=== PATIENT | female | born 1965 | race Caucasian/White ===

== ENCOUNTER 2017-06-27 19:51 | Emergency (ER) | payer BC ==
--- OUTSIDE RECORDS SUMMARY | 2017-06-27 20:22 | XMS REPORT ---
:1965 External Reference #:[id number] Author Organization [facility], [facility]–[address] Address [address] [place] [address] Phone [phone] Care Team Providers Name Role Phone Caitlyn Cedeno Primary Care Physician Unavailable Payers Type Date Identification Numbers Payment Provider Subscriber Commercial Policy Number: [id number] [place] Par Phoebe Roberts PayID: [id number] [employer] [place] [address] Problems Description No Information Family History Date Family Member(s) Problem(s) Comments Father due to Liver Cancer () Father due to Lung Cancer () Mother due to [place] () Children 2 First Daughter A&W Second Daughter A&W Siblings 3 Siblings Oldest child of 4 First Brother A&W Second Brother A&W First Sister A&W Social History Type Date Description Comments Education Highest level completed, Associates Degree Marital Status Lives With Spouse Sleep Typically sleeps 7 hours a night Pets None Occupation Floor Installer at [employer] Cigarette Use Former Cigarette Smoker 1/2 Pack Daily ETOH Use Denies alcohol use Recreational Drug Use Denies Drug Use Daily Caffeine Consumes on average 2 cups of coffee per day Exercise Type/Frequency Exercises regularly Seat Belt/Car Seat Always uses seat belt Currently Active Patient is currently not sexually active Allergies, Adverse Reactions, Alerts Date Description Reaction Status Severity Comments 03/26/2005 NKDA active Medications Medication Date Status Form Strength Qnty SIG Indications Ordering Provider Aygestin Active Tablets 5mg 84tabs 1po qd x Mychal Clarke 5 2Philippe miles M.D. then 1&1/2 tabs po qd x 2wks,then 2tabs po qd x2wks,the n 2 and1/2 tabs po qd x2wks, then 3 tabs poq Medications Administered in Office Medication Date Status Form Strength Qnty SIG Indications Ordering Provider PT SCRN Tbco Administered Injection Mychal Ahuja as Non User Fabio Paez M.D. Vital Signs Date Vital Result Comment 06/24/2017 BP Systolic 124 mmHg BP Diastolic 78 mmHg Height 61 inches 5'1" Weight 153.00 lb BMI (Body Mass Index) 28.9 kg/m2 Last Menstrual Period 9011919 2 Parity 2 03/26/2005 BP Systolic 150 mmHg BP Diastolic 90 mmHg Height 61 inches 5'1" Weight 144.00 lb BMI (Body Mass Index) 27.2 kg/m2 Last Menstrual Period 9236175 2 Parity 2 Results Description No Information Procedures Date CPT Code Description Status 06/01/2014 Mammogram Completed 06/01/2012 Colonoscopy Completed 07/01/2005 84413 Echography Transvaginal Completed 04/28/2005 59472 Echography Transvaginal Completed 03/26/2005 68218 Fitting & Insertion Of Pessary/Intravaginal Support Completed Device 04/17/2004 52744 Echography Transvaginal Completed Encounters Type Date Location Provider CPT E/M Dx Office Visit 05/21/2005 2:[facility]p [facility] Mychal Paez M.D. 89002 620.2 Office Visit 05/09/2005 9:00a [facility] Tavo Longoria C.N.M. 63307 625.9 V72.83 Office Visit 04/28/2005 1:20p [facility] Mychal Paez M.D. 75718 625.9 789.9 617.9 620.2 Office Visit 03/26/2005 2:20p [facility] Mychal Paez M.D. 29948 789.9 618.9 V72.31 V72.32 Office Visit 03/12/2004 8:15a [facility] Mychal Paez M.D. 62440 V72.31 V72.40 Office Visit 02/03/2003 10:15a [facility] Mychal Paez M.D. 54879 V72.3 V77.1 Plan of Care 04/28/2005 - Mychal Paez M.D.625.9 Female Genital Organs Unspec Dblxsasn834.9 Abdomen & Pelvis Symptoms Gcmnx326.9 Endometriosis Site Eoibde276.2 Ovarian Cyst Other & UnspecComments:u/s shows nclear 5x5 cm r ovarian cyst.left cyst smallerno fluid in culdesacdiscussed options recommend laparoscopy
[2017-06-27 20:51] VITALS: BP 150/93
--- NOTE | 2017-06-27 21:47 | UC ---
Allergic Reaction HPI - HPI Summary HPI Summary: Pt presents with recent facial swelling s/p taking lansoprazole, amoxicillin, and clarithromycin from her GI doctor. She took these thursday night - morning woke up with face swelling and facial pain. She called her GI and they advised her to stop taking the medications - she did. Woke up thursday and her swelling was gone, but still had some pain in her upper lip and right face. This pain has persisted to today, but is mildly improving. She has not taken anything for this. She follows up with her GI doctor on thursday. Denies fever, chills, vision changes, dizziness, headache, SOB, throat swelling, chest pain, abdominal pain, n/v/d/c. - History of Current Complaint Chief Complaint: UCDentalProblem Stated Complaint: TOOTH PAIN,SWELLING Time Seen by Provider: 06/27/17 21:47 Hx Obtained From: Patient Onset/Duration: Sudden Onset Severity Initially: Moderate Severity Currently: Moderate Pain Intensity: 8 Pain Scale Used: 0-10 Numeric Character: Swelling - Allergies/Home Medications Allergies/Adverse Reactions: Allergies Allergy/AdvReac Type Severity Reaction Status Date / Time No Known Allergies Allergy Verified 06/25/16 14:27 Home Medications: Home Medications Acetaminophen [Acetaminophen Extra Stren] 1 tab PO QID PRN 06/27/17 [History Confirmed 06/27/17] Amoxicillin PO (*) [Amoxicillin 500 MG CAP*] 1 tab PO BID 06/27/17 [History Confirmed 06/27/17] Clarithromycin TAB* [Biaxin 500 MG TAB*] 1 tab PO BID 06/27/17 [History Confirmed 06/27/17] Lansoprazole [Prevacid] 1 tab PO BID 06/27/17 [History Confirmed 06/27/17] PMH/Surg Hx/FS Hx/Imm Hx Previously Healthy: Yes Endocrine History: Dyslipidemia GI/ History: Gastroesophageal Reflux - Surgical History Surgical History: Yes Surgery Procedure, Year, and Place: CHOLECYSTECTOMY. HYSTERECTOMY. CARDIAC STENTS - [facility] (PROMUS DRUG-ELUTING STENT; SAFE UP TO 3T- MAX SPATIAL GRADIENT OF 2200 G/CM) - Family History Known Family History: Positive: Unknown - Social History Lives: With Family Alcohol Use: None Substance Use Type: None Smoking Status (MU): Current Every Day Smoker Type: Cigarettes Amount Used/How Often: 3 CIG/DAY 35+ YEARS Have You Smoked in the Last Year: Yes Cessation Counseling: Counseled 3+Min - 10 Min - Immunization History Most Recent Influenza Vaccination: 2013 Most Recent Tetanus Shot: unknown Most Recent Pneumonia Vaccination: never Review of Systems Constitutional: Negative Skin: Other - Pain right face Eyes: Negative ENT: Negative Respiratory: Negative Cardiovascular: Negative Gastrointestinal: Negative Neurovascular: Negative Musculoskeletal: Negative Neurological: Negative Psychological: Negative All Other Systems Reviewed And Are Negative: Yes Physical Exam Triage Information Reviewed: Yes Appearance: Well-Appearing, No Pain Distress, Well-Nourished Vital Signs: Initial Vital Signs Temp 99.2 F 06/27/17 20:41 Pulse 79 06/27/17 20:41 Resp 16 06/27/17 20:41 BP 150/93 06/27/17 20:41 Pulse Ox 99 06/27/17 20:41 Vital Signs Reviewed: Yes Eyes: Positive: Conjunctiva Clear. Negative: Conjunctiva Inflamed, Discharge ENT: Positive: Hearing grossly normal, Pharynx normal, TMs normal, Uvula midline. Negative: Pharyngeal erythema, Nasal congestion, Nasal drainage, TM bulging, TM dull, TM red, Tonsillar swelling, Tonsillar exudate Neck: Positive: Supple, Nontender, No Lymphadenopathy Respiratory: Positive: Chest non-tender, Lungs clear, Normal breath sounds, No respiratory distress, No accessory muscle use Cardiovascular: Positive: RRR, No Murmur, Pulses Normal Neurological: Positive: Alert. Negative: Fatigued Psychological: Positive: Age Appropriate Behavior Skin: Positive: Other - No facial edema appreciated. She does have tenderness over the skin of her right maxillary sinus and right upper lip. No erythema, ecchymosis, rash, or lesions appreciated. Allergic Reaction Course/Dx - Course Course Of Treatment: Allergic reaction to medication - suspect Amoxicillin as pt 's daughter is allergic to PCN. Decadron given in clinic tonight and rx for prednisone 5 days sent to the pharmacy. She has a follow up with GI scheduled for thursday -advised to keep that appt. - Differential Dx/Diagnosis Provider Diagnoses: Allergic reaction to medication. Facial edema Discharge - Discharge Plan Condition: Stable Disposition: HOME Prescriptions: predniSONE TAB* [Deltasone TAB*] 20 mg PO BID #10 tab Patient Education Materials: Antibiotic Medication Allergy (ED) Referrals: Caitlyn Cedeno MD [Primary Care Provider] - Additional Instructions: If you develop a fever, shortness of breath, swelling, chest pain, new or worsening symptoms - please call your PCP or go to the ED. Your blood pressure was high at todays visit. Please see your primary provider within 4 weeks for recheck and re-evaluation. 1) Do not take any more of the Amoxicillin, Clarithromycin, or Lansoprazole until you follow up with your GI doctor on Thursday.
[2017-06-27] MEDS ORDERED: Dexamethasone TAB* 4 MG PO ONE (21:58)
== END 2017-06-27 22:08 | disposition home or self-care (01) ==
LOC: UCEAST 19:51
DX: R60.9 Edema, unspecified (principal); T36.0X5A Adverse effect of penicillins, initial encounter; Y92.9 Unspecified place or not applicable; E78.5 Hyperlipidemia, unspecified; K21.9 Gastro-esophageal reflux disease without esophagitis; Z71.6 Tobacco abuse counseling; F17.210 Nicotine dependence, cigarettes, uncomplicated
CPT/HCPCS: 99212; G0463; J8540

== ENCOUNTER 2018-08-13 14:09 | Emergency (ER) | payer BC ==
[2018-08-13 14:25] VITALS: BP 154/93
--- NOTE | 2018-08-13 14:43 | UC ---
General HPI - HPI Summary HPI Summary: 53 yo female presents with , c/o R upper chest / scapula pain - on Thursday (today is Thursday). Pain gradually resolved. Since then, has noted swelling and discomfort in both legs, L>R. Able to sleep ok, no pnd / orthopnea. + cough in am, attributes to smoking. Smokes approx 10 cig's / day. No GI issues, melena / brbpr. No urinary issues. No rash. No vis / aud changes, h/a. No recent illness / fever. Has been working (alf), but sx have been getting worse, prompting call to PCP, who told her to go to ED. Ms. Roberts is concerned d/t admission to hospital for "heart attack" approx 5 yrs ago, s/p cath / stent. She also is concerned b/c her blood pressure is much higher than her baseline, and she was told by her swim coach the she must go to the ED if blood pressure escalates. - History of Current Complaint Chief Complaint: UCGeneralIllness Stated Complaint: SWELLING-PAIN LEGS Time Seen by Provider: 08/13/18 14:41 Hx Obtained From: Patient, Family/Baggage Security Checker Pain Intensity: 0 - Allergy/Home Medications Allergies/Adverse Reactions: Allergies Allergy/AdvReac Type Severity Reaction Status Date / Time No Known Allergies Allergy Verified 08/13/18 15:48 PMH/Surg Hx/FS Hx/Imm Hx Previously Healthy: Yes - see hpi for pert - Surgical History Surgical History: Yes Surgery Procedure, Year, and Place: CHOLECYSTECTOMY. HYSTERECTOMY. CARDIAC STENTS - [facility] (PROMUS DRUG-ELUTING STENT; SAFE UP TO 3T- MAX SPATIAL GRADIENT OF 2200 G/CM) - Family History Known Family History: Positive: Unknown, Hypertension - Social History Alcohol Use: None Substance Use Type: None Smoking Status (MU): Light Every Day Tobacco Smoker Type: Cigarettes Amount Used/How Often: 3 CIG/DAY 35+ YEARS Have You Smoked in the Last Year: Yes - Immunization History Most Recent Influenza Vaccination: 2013 Most Recent Tetanus Shot: unknown Most Recent Pneumonia Vaccination: never Review of Systems All Other Systems Reviewed And Are Negative: Yes Constitutional: Positive: Other - see hpi Skin: Positive: Negative Eyes: Positive: Negative ENT: Positive: Negative Respiratory: Positive: Other - see hpi Cardiovascular: Positive: Other - see hpi Gastrointestinal: Positive: Other - see hpi Motor: Positive: Other - see hpi Neurovascular: Positive: Negative Musculoskeletal: Positive: Negative Neurological: Positive: Negative Psychological: Positive: Negative Is Patient Immunocompromised?: No Physical Exam Triage Information Reviewed: Yes Appearance: Well-Nourished - sitting up, conversing easily and appropriately. NAD. Nontoxic appearance. Vital Signs: Initial Vital Signs Temp 98.3 F 08/13/18 14:17 Pulse 80 08/13/18 14:17 Resp 16 08/13/18 14:17 BP 154/93 08/13/18 14:17 Pulse Ox 94 08/13/18 14:17 Vital Signs Reviewed: Yes Eye Exam: Normal ENT Exam: Normal Neck exam: Normal Neck: Positive: Supple Respiratory Exam: Other - BS equal, faint BB crackles No resp distress. No stridor. Respiratory: Positive: No respiratory distress, No accessory muscle use Cardiovascular Exam: Normal Cardiovascular: Positive: RRR, No Murmur, Pulses Normal, Brisk Capillary Refill Abdominal Exam: Normal Abdomen Description: Positive: Nontender Bowel Sounds: Positive: Present Musculoskeletal Exam: Other - Mild Bilat edema perimalleolar. L>R Feet warm to touch. CR good. DP palpable. Neurological Exam: Normal - grossly nonfocal Psychological Exam: Normal - conversing easily and appropriately Skin Exam: Normal - no visible or reported rash Course/Dx - Course Course Of Treatment: Reviewed records in [employer], including d/c summary, ekg, recent blood work. EKG sr 76 bpm. BL T wave abnorm. Qtc 423PR 186. C/w 04/12/14 D/w pt and . Recommend eval / tx in ED. They express understanding and agreement. EMS offered, but they respectfully decline. ASA 81mg po x 3 here (she took one at home). Questions as posed answered to the best of my ability. I spoke with Re[place] WARR[place] [facility] [place] - Diagnoses Provider Diagnosis: Edema, Cough, Chest pain Discharge - Sign-Out/Discharge Documenting (check all that apply): Patient Departure All imaging exams completed and their final reports reviewed: No Studies - Discharge Plan Condition: Guarded Disposition: HOME-RECOMMEND TO ED Patient Education Materials: Chest Pain (ED), Leg Edema (ED), Hypertension (ED) Referrals: Caitlyn Cedeno MD [Primary Care Provider] - Additional Instructions: Please go directly to the Emergency Department. Please call [phone] if any problems in the meantime. - Billing Disposition and Condition Condition: GUARDED Disposition: Home-Recommend to ED
[2018-08-13] MEDS ORDERED: Aspirin 81 mg CHEW TAB* 81 MG TAB.CHEW PO ONE (15:09)
== END 2018-08-13 15:15 | disposition home health service (06) ==
LOC: UCEAST 14:09
DX: R07.9 Chest pain, unspecified (principal); R05 Cough; R60.9 Edema, unspecified; F17.210 Nicotine dependence, cigarettes, uncomplicated
CPT/HCPCS: 99212; A9270-GY; G0463

== ENCOUNTER 2018-08-13 15:39 | Emergency (ER) | payer BC ==
[2018-08-13] MEDS ORDERED: Aspirin 81 mg CHEW TAB* 81 MG TAB.CHEW PO ONE (15:46)
--- NOTE | 2018-08-13 16:31 | ED ---
HPI Chest Pain - HPI Summary HPI Summary: The patient is a 53 y/o F presenting to [facility] with a chief complaint of sharp right anterior CP that radiates into the right shoulder, right upper back, and right arm 3 days ago that has since resolved, with a new onset of BLE edema and pain starting yesterday. The leg pain is currently rated 3/10 in severity. There are no aggravating or alleviating factors. She denies current CP. She had DUFFY in 2012, with her last stress test in 2013. Her current oracle reports developer is Dr. Dunbar, but she was seeing Dr. Lees at time of the DUFFY, who prescribed her blood thinners and then ended the course. She had an echocardiogram in May 2018, which was normal. - History of Current Complaint Chief Complaint: EDChestPainROMI Time Seen by Provider: 08/13/18 16:02 Hx Obtained From: Patient Onset/Duration: Started Hours Ago - pain and swelling in BLE started yesterday, Started Days Ago - CP three days ago that has resolved, Still Present - BLE pain Timing: Lasting Hours Initial Severity: Moderate Current Severity: Moderate Pain Intensity: 3 Pain Scale Used: 0-10 Numeric Chest Pain Location: Right Anterior Chest Pain Radiates: Yes Chest Pain Radiates To:: Back - right upper, Shoulder - right, Arm - right Character: Sharp/Stabbing Aggravating Factor(s): Nothing Alleviating Factor(s): Nothing Associated Signs and Symptoms: Positive: Chest Pain - resolved since inital onset three days ago, Edema - BLE, painful - Allergy/Home Medications Allergies/Adverse Reactions: Allergies Allergy/AdvReac Type Severity Reaction Status Date / Time No Known Allergies Allergy Verified 08/13/18 15:48 PMH/Surg Hx/FS Hx/Imm Hx Endocrine/Hematology History: Denies: Hx Diabetes, Hx Thyroid Disease Cardiovascular History: Denies: Hx Hypertension, Hx Pacemaker/ICD Respiratory History: Denies: Hx Asthma, Hx Chronic Obstructive Pulmonary Disease (COPD) GI History: Reports: Hx Gall Bladder Disease - surgery, Hx Gastroesophageal Reflux Disease - recent endoscopy clear Denies: Hx Ulcer History: Denies: Hx Renal Disease Musculoskeletal History: Reports: Other Musculoskeletal History - right leg thigh and leg pain Sensory History: Reports: Hx Contacts or Glasses - reading Denies: Hx Hearing Aid Opthamlomology History: Reports: Hx Contacts or Glasses - reading Neurological History: Reports: Hx Headaches Psychiatric History: Denies: Hx Panic Disorder - Cancer History Hx Chemotherapy: No Hx Radiation Therapy: No - Surgical History Surgery Procedure, Year, and Place: CHOLECYSTECTOMY. HYSTERECTOMY. CARDIAC STENTS - [facility] (PROMUS DRUG-ELUTING STENT; SAFE UP TO 3T- MAX SPATIAL GRADIENT OF 2200 G/CM) Hx Anesthesia Reactions: No - Immunization History Date of Tetanus Vaccine: unknown Infectious Disease History: No Infectious Disease History: Denies: Hx Hepatitis, Hx Human Immunodeficiency Virus (HIV), Traveled Outside the [place] in Last 30 Days - Family History Known Family History: Positive: Unknown - Social History Alcohol Use: None Substance Use Type: Reports: None Hx Tobacco Use: Yes Smoking Status (MU): Light Every Day Tobacco Smoker Type: Cigarettes Amount Used/How Often: 3 CIG/DAY 35+ YEARS Have You Smoked in the Last Year: Yes Review of Systems Positive: Chest Pain - sharp right anterior pain that radiates to right shoulder , right upper back, and right arm that has since resolved Positive: Edema - in BLE with pain All Other Systems Reviewed And Are Negative: Yes Physical Exam - Summary Physical Exam Summary: VITAL SIGNS: Reviewed. GENERAL: Patient is a well-developed and nourished female who is lying comfortable in the stretcher. Patient is not in any acute respiratory distress. HEAD AND FACE: No signs of trauma. No ecchymosis, hematomas or skull depressions. No sinus tenderness. EYES: PERRLA, EOMI x 2, No injected conjunctiva, no nystagmus. EARS: Hearing grossly intact. Ear canals and tympanic membranes are within normal limits. MOUTH: Oropharynx within normal limits. NECK: Supple, trachea is midline, no adenopathy, no JVD, no carotid bruit, no c- spine tenderness, neck with full ROM. CHEST: Symmetric, no tenderness at palpation LUNGS: Clear to auscultation bilaterally. No wheezing or crackles. CVS: Regular rate and rhythm, S1 and S2 present, no murmurs or gallops appreciated. ABDOMEN: Soft, non-tender. No signs of distention. No rebound no guarding, and no masses palpated. Bowel sounds are normal. EXTREMITIES: FROM in all major joints, no edema, no cyanosis or clubbing. NEURO: Alert and oriented x 3. No acute neurological deficits. Speech is normal and follows commands. SKIN: Dry and warm Triage Information Reviewed: Yes Vital Signs On Initial Exam: Initial Vitals Temp Pulse Resp BP Pulse Ox 97.7 F 74 16 162/99 97 08/13/18 15:41 08/13/18 15:41 08/13/18 15:41 08/13/18 15:41 08/13/18 15:41 Vital Signs Reviewed: Yes Diagnostics - Vital Signs Vital Signs Temp Pulse Resp BP Pulse Ox 08/13/18 15:41 97.7 F 74 16 162/99 97 - Laboratory Result Diagrams: 08/13/18 16:10 08/13/18 16:11 Lab Statement: Any lab studies that have been ordered have been reviewed, and results considered in the medical decision making process. - Radiology CXR Radiology Interpretation Completed By: Radiologist Summary of Radiographic Findings: No evidence for acute disease. ED physician has reviewed this report. - Ultrasound No standard instances Ultrasound Interpretation Completed By: Radiologist Summary of Ultrasound Findings: BLE US: No acute findings. No evidence of deep vein thrombosis. ED physician has reviewed this report. - EKG 15:58 Cardiac Rate: NL - 74 BPM EKG Rhythm: Sinus Rhythm EKG Comparison: No Significant Change - Similar to 04/07/2014. Summary of EKG Findings: No ST elevations. Re-Evaluation - Re-Evaluation First Eval Re-Evaluation Time: 19:30 Change: Unchanged Comment: I discussed with the patient her results and discharge home. Chest Pain Course/Dx - Course Assessment/Plan: Patient is a 53-year-old female with history of hypertension, dyslipidemia, CAD status post stent and VA presents to the emergency room with a chief complaint of having one episode of chest pain that resolve the chest on Thursday, which was three days ago. The patient also has developed mild bilateral lower extremity edema. She discussed the case with her primary care physician and he recommended for the patient to come to the emergency room for further workup and management. At this time the patient is asymptomatic. Blood work without any significant abnormality. 2 troponins 4 hours apart and negative. Bilateral lower to mid ultrasound is negative for DVT. Chest x-ray shows no acute pathology. EKG shows no ST elevations. I discussed all the findings and test results with the patient. Patient was instructed to return to the emergency room immediately if any of the symptoms return or worsens. Plan of care was discussed with the patient and understands and agrees. All questions were answered at patient satisfaction. There were no further complaints or concerns. Lung exam before discharge: CTA B/L. Good air exchange. No wheezing or crackles heard. CVS: S1 and S2 present. No murmurs appreciated. Patient is alert and oriented x 3. Patient is hemodynamically stable. Patient will be discharged home with follow up PCP in the next 2-3 days. - Chest Pain Differential Diagnosis/HQI/PQRI: Acute VA, Angina, CHF, Chest Wall, GI Disease, Lower Respiratory Infection - Diagnoses Provider Diagnoses: Atypical chest pain, Lower extremity edema Discharge - Sign-Out/Discharge Documenting (check all that apply): Patient Departure - Patient will be discharged home. Patient Received Moderate/Deep Sedation with Procedure: No - Discharge Plan Condition: Stable Disposition: HOME Patient Education Materials: Chest Pain (ED) Referrals: Caitlyn Cedeno MD [Primary Care Provider] - 3 Days Additional Instructions: FOLLOW UP WITH YOUR PRIMARY CARE PROVIDER WITHIN 2-3 DAYS FOR HIGH BLOOD PRESSURE NOTED TODAY. RETURN TO THE ED FOR ANY WORSENING OR NEW SYMPTOMS. - Billing Disposition and Condition Condition: STABLE Disposition: Home - Attestation Statements Document Initiated by Ramírezibe: Yes Documenting Scribe: Pamella Noriega Provider For Whom Zachary is Documenting (Include Credential): Dr. Bernard White MD Scribe Attestation: Pamella Yang scribed for Dr. Bernard White MD on 08/13/18 at 2013. Scribe Documentation Reviewed: Yes Provider Attestation: The documentation as recorded by the Pamella frias accurately reflects the service I personally performed and the decisions made by me, Dr. Bernard White MD Status of Scribe Document: Ready
[2018-08-13 16:35] LABS: Albumin 4.3 g/dL (3.2-5.2); Albumin/Globulin Ratio 1.5 (1-3); BUN/Creatinine Ratio 14.1 (8-20); Calcium 9.4 mg/dL (8.6-10.3); EGFR Non-African American 69.4 (>60); Globulin 2.8 g/dL (2-4); Magnesium 2.3 mg/dL (1.9-2.7); Potassium 4.2 mmol/L (3.5-5.0); Total Bilirubin 0.2 mg/dL (0.2-1.0); Total Protein 7.1 g/dL (6.4-8.9)
[2018-08-13 16:44] LABS: ABS Basophils 0.1 10^3/ul (0-0.2); ABS Eosinophils 0.2 10^3/ul (0-0.6); ABS Monocytes 0.8 10^3/ul (0-0.8); ABS Neutrophils 4.2 10^3/ul (1.5-7.7); ABS Nucleated RBC 0 10^3/ul; Eosinophil % 2.5 %; Hematocrit 41 % (33-41); Hemoglobin 13.7 g/dL (12.0-16.0); Lymphocyte % 36.4 %; Mean Corpuscular HGB Conc 34 g/dL (31-36); Mean Corpuscular Hemoglobin 29 pg (27-31); Mean Corpuscular Volume 85 fL (80-97); Mean Platelet Volume 7.5 fL (7.4-10.4); Nucleated Red Blood Cells % 0; Platelet Count 295 10^3/uL (150-450); Red Blood Count 4.79 10^6 /uL (3.70-4.87); Red Cell Distribution Width 15 % (10.5-15); White Blood Count 8.3 10^3/uL (3.5-10.8)
[2018-08-13 19:38] VITALS: BP 150/88
== END 2018-08-13 19:42 | disposition home or self-care (01) ==
LOC: ED 15:39
DX: R07.89 Other chest pain (principal); R60.0 Localized edema; M25.511 Pain in right shoulder; M54.6 Pain in thoracic spine; M79.601 Pain in right arm; I25.10 Atherosclerotic heart disease of native coronary artery without angina pectoris; I25.2 Old myocardial infarction; I10 Essential (primary) hypertension; Z95.5 Presence of coronary angioplasty implant and graft; E78.5 Hyperlipidemia, unspecified; F17.210 Nicotine dependence, cigarettes, uncomplicated
CPT/HCPCS: 36415; 71045; 80053; 82550; 82553; 83605; 83735; 83880; 84484; 85025; 85730; 93005; 93970; 99283; A9270-GY